=== PATIENT | female | born 1995 | race Caucasian/White ===

== ENCOUNTER → 2019-11-14 | Outpatient (CLI) | payer OTHER ==
--- NOTE | 2019-11-14 12:11 | US ---
EXAMINATION TYPE: US liver DATE OF EXAM: 11/14/2019 COMPARISON: NONE CLINICAL HISTORY: B18.2 Chronic viral hepatitis C. EXAM MEASUREMENTS: Liver Length: 12.0 cm Gallbladder Wall: Surgically absent CBD: 0.3 cm Right Kidney: 10.6 x 4.2 x 5.6 cm Pancreas: not identified due to midline bowel gas Liver: There is no mass. No dilated intra or extrahepatic biliary ducts. Gallbladder: Surgically absent CBD: wnl Right Kidney: No hydronephrosis or masses seen There is no ascites. IMPRESSION: Postop change. No abnormality evident within the liver.
== END | disposition home or self-care (01) ==
LOC: RADUSWWP 08:37
PROVIDERS: ATTEND Internal Medicine Gastroenterology
DX: B18.2 Chronic viral hepatitis C (principal); Z98.890 Other specified postprocedural states
CPT/HCPCS: 76705

== ENCOUNTER 2020-05-25 17:32 | Emergency (ER) | payer OTHER ==
--- NOTE | 2020-05-25 18:12 | ED ---
Psych HPI - General Source: patient, RN notes reviewed Mode of arrival: ambulatory Limitations: no limitations <Lg Ghosh - Last Filed: 05/25/20 18:11> <Joby Johnson - Last Filed: 05/26/20 23:54> - General Chief Complaint: Psychiatric Symptoms Stated Complaint: EPS eval Time Seen by Provider: 05/25/20 17:41 - History of Present Illness Initial Comments: 24-year-old female presents emergency Department with chief complaint of depression, suicidal ideation. She's been having increasing depression. Patient is she is currently is homeless. She has been struggling with heroin addiction. Patient denies any alcohol use. Denies any physical complaints. Denies any homicidal ideation. She states that she supposed be on psychiatric medications but has not been taking them. (Lg Ghosh) - Related Data Home Medications Medication Instructions Recorded Confirmed Albuterol Inhaler [Ventolin Hfa 1 - 2 puff INHALATION RT-Q4H PRN 05/25/2005/25 Inhaler] Divalproex ER [Depakote ER] 500 mg PO BID 05/25/20 05/25/20 Lurasidone [Latuda] 40 mg PO HS 05/25/20 05/25/20 Previous Rx's Medication Instructions Recorded buPROPion XL [Wellbutrin XL] 150 mg PO DAILY 30 Days tab.er.24h 08/17/14 Allergies Allergy/AdvReac Type Severity Reaction Status Date / Time No Known Allergies Allergy Verified 05/25/20 17:39 Review of Systems ROS Other: All systems not noted in ROS Statement are negative. <Lg Ghosh - Last Filed: 05/25/20 18:11> ROS Other: All systems not noted in ROS Statement are negative. <Joby Johnson - Last Filed: 05/26/20 23:54> ROS Statement: Those systems with pertinent positive or pertinent negative responses have been documented in the HPI. Past Medical History Past Medical History: Asthma, Fibromyalgia History of Any Multi-Drug Resistant Organisms: None Reported Past Surgical History: Adenoidectomy Additional Past Surgical History / Comment(s): 2002 Past Anesthesia/Blood Transfusion Reactions: No Reported Reaction Past Psychological History: ADD/ADHD, Depression Smoking Status: Current every day smoker Past Alcohol Use History: Occasional Past Drug Use History: None Reported - Past Family History Mother Family Medical History: Fibromyalgia <Lg Ghosh - Last Filed: 05/25/20 18:11> General Exam Limitations: no limitations General appearance: alert, in no apparent distress Head exam: Present: atraumatic, normocephalic, normal inspection Eye exam: Present: normal appearance, PERRL, EOMI. Absent: scleral icterus, conjunctival injection, periorbital swelling ENT exam: Present: normal exam (Nose ring in place), normal oropharynx, mucous membranes moist, TM's normal bilaterally, normal external ear exam Neck exam: Present: normal inspection, full ROM. Absent: tenderness, meningismus, lymphadenopathy Respiratory exam: Present: normal lung sounds bilaterally. Absent: respiratory distress, wheezes, rales, rhonchi, stridor Cardiovascular Exam: Present: regular rate, normal rhythm, normal heart sounds. Absent: systolic murmur, diastolic murmur, rubs, gallop, clicks Neurological exam: Present: alert, oriented X3 Psychiatric exam: Present: depressed Skin exam: Present: warm, dry, intact, normal color. Absent: rash <Lg Ghosh M - Last Filed: 05/25/20 18:11> Course <Joby Johnson - Last Filed: 05/26/20 23:54> Vital Signs 05/25/20 05/25/20 05/26/20 17:34 20:35 06:37 Temperature 98.3 F 97.7 F 98.3 F Pulse Rate 64 78 66 Respiratory 18 17 17 Rate Blood Pressure 109/65 121/60 111/63 O2 Sat by Pulse 99 98 99 Oximetry - Reevaluation(s) Reevaluation #1: 05/25/20 22:58 The patient's care was endorsed me by Lg at our shift change. The patient is demonstrating hopelessness suicidal thoughts and ideation and depression. She does have a plan either cut herself or overdose. She will be transferred to an outside facility answers currently no room at this facility. A clinical certain was filled out by me. The case will be endorsed to Dr. Carvalho at our shift change pending transfer. (Joby Johnson) Medical Decision Making - Lab Data Result diagrams: 05/26/20 00:03 05/26/20 00:03 <Joby Johnson - Last Filed: 05/26/20 23:54> - Lab Data Lab Results 05/25/20 05/25/2005/25/20 Range/Units 18:31 18:31 18:31 WBC (3.8-10.6) k/uL RBC (3.80-5.40) m/uL Hgb (11.4-16.0) gm/dL Hct (34.0-46.0) % MCV (80.0-100.0) fL MCH (25.0-35.0) pg MCHC (31.0-37.0) g/dL RDW (11.5-15.5) % Plt Count (150-450) k/uL Hypochromasia Microcytosis Sodium (137-145) mmol/L Potassium (3.5-5.1) mmol/L Chloride (98-107) mmol/L Carbon Dioxide (22-30) mmol/L Anion Gap mmol/L BUN (7-17) mg/dL Creatinine (0.52-1.04) mg/dL Est GFR (CKD-EPI)AfAm (>60 ml/min/1.73 sqM) Est GFR (CKD-EPI)NonAf (>60 ml/min/1.73 sqM) Glucose (74-99) mg/dL Calcium (8.4-10.2) mg/dL Urine Color Yellow Urine Appearance Turbid H (Clear) Urine pH 6.0 (5.0-8.0) Ur Specific [place] 1.031 (1.001-1.035) Urine Protein 1+ H (Negative) Urine Glucose (UA) Negative (Negative) Urine Ketones Negative (Negative) Urine Blood Trace H (Negative) Urine Nitrite Negative (Negative) Urine Bilirubin Negative (Negative) Urine Urobilinogen 3.0 (<2.0) mg/dL Ur Leukocyte Esterase Negative (Negative) Urine RBC 2 (0-5) /hpf Urine WBC 2 (0-5) /hpf Ur Squamous Epith Cells 5 H (0-4) /hpf Amorphous Sediment Many H (None) /hpf Urine Mucus Many H (None) /hpf Urine HCG, Qual Not Detected (Not Detectd) Urine Opiates Screen Not Detected (NotDetected) Ur Oxycodone Screen Detected H (NotDetected) Urine Methadone Screen Not Detected (NotDetected) Ur Propoxyphene Screen Not Detected (NotDetected) Ur Barbiturates Screen Not Detected (NotDetected) U Tricyclic Antidepress Not Detected (NotDetected) Ur Phencyclidine Scrn Not Detected (NotDetected) Ur Amphetamines Screen Detected H (NotDetected) U Methamphetamines Scrn Not Detected (NotDetected) U Benzodiazepines Scrn Detected H (NotDetected) Urine Cocaine Screen Not Detected (NotDetected) U Marijuana (THC) Screen Not Detected (NotDetected) 05/26/20 05/26/20 Range/Units 00:03 00:03 WBC 7.3 (3.8-10.6) k/uL RBC 5.77 H (3.80-5.40) m/uL Hgb 11.6 (11.4-16.0) gm/dL Hct 38.5 (34.0-46.0) % MCV 66.8 L (80.0-100.0) fL MCH 20.0 L (25.0-35.0) pg MCHC 30.0 L (31.0-37.0) g/dL RDW 14.9 (11.5-15.5) % Plt Count 392 (150-450) k/uL Hypochromasia Marked Microcytosis Marked Sodium 139 (137-145) mmol/L Potassium 4.0 (3.5-5.1) mmol/L Chloride 108 H (98-107) mmol/L Carbon Dioxide 24 (22-30) mmol/L Anion Gap 7 mmol/L BUN 10 (7-17) mg/dL Creatinine 0.63 (0.52-1.04) mg/dL Est GFR (CKD-EPI)AfAm >90 (>60 ml/min/1.73 sqM) Est GFR (CKD-EPI)NonAf >90 (>60 ml/min/1.73 sqM) Glucose 105 H (74-99) mg/dL Calcium 9.3 (8.4-10.2) mg/dL Urine Color Urine Appearance (Clear) Urine pH (5.0-8.0) Ur Specific [place] (1.001-1.035) Urine Protein (Negative) Urine Glucose (UA) (Negative) Urine Ketones (Negative) Urine Blood (Negative) Urine Nitrite (Negative) Urine Bilirubin (Negative) Urine Urobilinogen (<2.0) mg/dL Ur Leukocyte Esterase (Negative) Urine RBC (0-5) /hpf Urine WBC (0-5) /hpf Ur Squamous Epith Cells (0-4) /hpf Amorphous Sediment (None) /hpf Urine Mucus (None) /hpf Urine HCG, Qual (Not Detectd) Urine Opiates Screen (NotDetected) Ur Oxycodone Screen (NotDetected) Urine Methadone Screen (NotDetected) Ur Propoxyphene Screen (NotDetected) Ur Barbiturates Screen (NotDetected) U Tricyclic Antidepress (NotDetected) Ur Phencyclidine Scrn (NotDetected) Ur Amphetamines Screen (NotDetected) U Methamphetamines Scrn (NotDetected) U Benzodiazepines Scrn (NotDetected) Urine Cocaine Screen (NotDetected) U Marijuana (THC) Screen (NotDetected) Disposition <Lg Ghosh - Last Filed: 05/25/20 18:11> - Out of Hospital Transfer - Req. Specs Out of Hospital Transfer - Requested Specifics: Psychiatric Non-ICU <Joby Johnson - Last Filed: 05/26/20 23:54> Clinical Impression: Depression, Suicidal ideation Disposition: TRANSFER TO PSYCH HOSP/UNIT Condition: Stable Referrals: None,Stated [Primary Care Provider] - 1-2 days
[2020-05-25 18:54] LABS: Amphetamine Screen,Urine Detected (NotDetected); Barbiturate Screen,Urine Not Detected (NotDetected); Benzodiazepines Screen,Urine Detected (NotDetected); Cocaine Screen,Urine Not Detected (NotDetected); Methadone Screen, Urine Not Detected (NotDetected); Opiate Screen,Urine Not Detected (NotDetected); Oxycodone Screen, Urine Detected (NotDetected); Phencyclidine Screen,Urine Not Detected (NotDetected); Tricyclic Antidepressant,Urine Not Detected (NotDetected); Urn Cannabinoid Scrn Not Detected (NotDetected)
[2020-05-25 20:36] VITALS: RESP 17
[2020-05-25] MEDS ORDERED: NICOTINE 7MG/24HR PATCH TRANSDERM ONE (21:30)
[2020-05-25] MEDS ORDERED: ZOLPIDEM 5 MG TAB PO PRN (22:00)
[2020-05-26 00:19] LABS: HCT 38.5 % (34.0-46.0); HGB 11.6 gm/dL (11.4-16.0); Hypochromasia Marked; MCV 66.8 fL (80.0-100.0); Mean Platelet Volume 6.8; Microcytosis Marked; Platelet Count 392 k/uL (150-450); RBC 5.77 m/uL (3.80-5.40); RDW 14.9 % (11.5-15.5); WBC 7.3 k/uL (3.8-10.6)
[2020-05-26 00:22] LABS: African American GFR (CKD) >90 (>60 ml/min/1.73 sqM); Anion Gap 7 mmol/L; Blood Urea Nitrogen 10 mg/dL (7-17); Calcium 9.3 mg/dL (8.4-10.2); Carbon Dioxide 24 mmol/L (22-30); Chloride 108 mmol/L (98-107); Glucose 105 mg/dL (74-99); Non-African American GFR(CKD) >90 (>60 ml/min/1.73 sqM); Sodium 139 mmol/L (137-145)
[2020-05-26 01:02] LABS: Amorphous Sediment,Urine Many /hpf; Appearance,Urine Turbid (Clear); Bilirubin,Urine Negative (Negative); Blood,Urine Trace (Negative); Color,Urine Yellow; Glucose,Urine (UA) Negative (Negative); Ketones,Urine Negative (Negative); Leukocyte Esterase,Urine Negative (Negative); Mucus,Urine Many /hpf; Nitrite,Urine Negative (Negative); Protein,Urine 1+ (Negative); RBC,Urine 2 /hpf (0-5); Specific Gravity,Urine 1.031 (1.001-1.035); Squamous Epithelial Cell,Urine 5 /hpf (0-4); WBC,Urine 2 /hpf (0-5)
[2020-05-26 08:09] VITALS: BP 111/63; PULSE 66; TEMP 98.3
== END 2020-05-26 06:39 ==
LOC: EC 17:32
DX: R45.851 Suicidal ideations (principal); F32.9 Major depressive disorder, single episode, unspecified; J45.909 Unspecified asthma, uncomplicated; F11.20 Opioid dependence, uncomplicated; F17.200 Nicotine dependence, unspecified, uncomplicated; Z79.899 Other long term (current) drug therapy; Z59.0 Homelessness
CPT/HCPCS: 99285 ×2; 82075; 36415; 80048; 85027; 81001; 81025; 80306; S4990

== ENCOUNTER 2022-04-19 06:10 | Inpatient (IN) | payer OTHER ==
[2022-04-19] MEDS ORDERED: CITRIC ACID-SODIUM CITRATE 15 ML CUP PO ONE (06:46)
[2022-04-19] MEDS: LACTATED RINGERS 1,000 ML IV SCH ×2 (07:09→14:26)
[2022-04-19 07:13] LABS: Basophils % (A) 0 %; Eosinophils # (A) 0.1 k/uL (0-0.7); Eosinophils % (A) 1 %; HCT 37.4 % (34.0-46.0); HGB 11.5 gm/dL (11.4-16.0); Hypochromasia Slight; Lymphocytes # (A) 2.6 k/uL (1.0-4.8); Lymphocytes % (A) 23 %; MCH 21.2 pg (25.0-35.0); MCHC 30.7 g/dL (31.0-37.0); MCV 69.1 fL (80.0-100.0); Mean Platelet Volume 9.7; Microcytosis Marked; Monocytes # (A) 0.6 k/uL (0-1.0); Monocytes % (A) 6 %; Neutrophils # (A) 7.6 k/uL (1.3-7.7); Neutrophils % (A) 69 %; Platelet Count 243 k/uL (150-450); RBC 5.41 m/uL (3.80-5.40); RDW 15.8 % (11.5-15.5); WBC 11.1 k/uL (3.8-10.6)
--- NOTE | 2022-04-19 07:24 | P.HPOB ---
History of Present Illness H&P Date: 04/19/22 Chief Complaint: Breech 26-year-old presents at 39 weeks and 5 days for a primary low transverse for breech. Dr. Olvera and I did attempts an external eversion this morning which was unsuccessful. heart tones are 135 with moderate variability and reactive. Review of Systems All systems: negative Constitutional: Denies chills, Denies fever Eyes: denies blurred vision, denies pain Ears, nose, mouth and throat: Denies headache, Denies sore throat Cardiovascular: Denies chest pain, Denies shortness of breath Respiratory: Denies cough Gastrointestinal: Denies abdominal pain, Denies diarrhea, Denies nausea, Denies vomiting Genitourinary: Denies dysuria, Denies hematuria Musculoskeletal: Denies myalgias Integumentary: Denies pruritus, Denies rash Neurological: Denies numbness, Denies weakness Psychiatric: Denies anxiety, Denies depression Endocrine: Denies fatigue, Denies weight change Past Medical History Past Medical History: Asthma, Fibromyalgia Additional Past Medical History / Comment(s): Obstetric history: This patient has a history of heroin use and was on Suboxone therapy when she got . She stopped Suboxone in the first trimester. She is a transfer of care to me from another physician in the area of the stopped practicing. She's been very compliant with her visits. History of Any Multi-Drug Resistant Organisms: None Reported Past Surgical History: Adenoidectomy Additional Past Surgical History / Comment(s): 2002 Past Anesthesia/Blood Transfusion Reactions: No Reported Reaction Past Psychological History: ADD/ADHD, Depression Smoking Status: Current every day smoker Past Alcohol Use History: Occasional Past Drug Use History: None Reported - Past Family History Mother Family Medical History: Asthma, Fibromyalgia Medications and Allergies Home Medications Medication Instructions Recorded Confirmed Type Albuterol Inhaler [Ventolin Hfa 1 - 2 puff INHALATION RT-Q4H PRN 05/25/20 05/25/20 History Inhaler] Ferrous Sulfate [Iron] 325 mg PO DAILY 04/19/22 04/19/22 History Vit No.179/Iron/Folic 1 each PO DAILY 04/19/22 04/19/22 History [ Tablet] Allergies Allergy/AdvReac Type Severity Reaction Status Date / Time No Known Allergies Allergy Verified 04/19/22 06:22 Exam Osteopathic Statement: *. No significant issues noted on an osteopathic structural exam other than those noted in the History and Physical/Consult. Vital Signs Temp Pulse Resp BP Pulse Ox 04/19/22 06:16 97.2 F L 64 18 133/84 98 Intake and Output 04/18/22 04/19/22 04/19/22 22:59 06:59 14:59 Other: Weight 113.398 kg Heart: Regular rate and rhythm Lungs: Clear to auscultation bilaterally Abdomen: Soft, nontender Extremities: Negative Homans sign Results Result Diagrams: 04/19/22 06:30 Abnormal Lab Results - Last 24 Hours (Table) 04/19/22 Range/Units 06:30 WBC 11.1 H (3.8-10.6) k/uL RBC 5.41 H (3.80-5.40) m/uL MCV 69.1 L (80.0-100.0) fL MCH 21.2 L (25.0-35.0) pg MCHC 30.7 L (31.0-37.0) g/dL RDW 15.8 H (11.5-15.5) % Assessment and Plan (1) Breech presentation Current Visit: Yes Status: Acute Code(s): O32.1XX0 - MATERNAL CARE FOR BREECH PRESENTATION, UNSP SNOMED Code(s): 1006356 (2) 39 weeks gestation of Current Visit: Yes Status: Acute Code(s): Z3A.39 - 39 WEEKS GESTATION OF SNOMED Code(s): 38833715 Plan: 1. Primary low transverse
[2022-04-19] MEDS ORDERED: MORPHINE SULFATE 2 MG/ML SYRINGE IVP PRN (08:28)
[2022-04-19] MEDS ORDERED: diphenhydrAMINE 50 MG/ML 1 ML VIAL IVP PRN ×3 (08:28→08:35)
[2022-04-19] MEDS ORDERED: NALOXONE 0.4 MG/ML 1 ML VIAL IV PRN ×2 (08:28→08:35)
[2022-04-19] MEDS ORDERED: ONDANSETRON 4 MG/2 ML VIAL IVP PRN (08:28)
[2022-04-19] MEDS ORDERED: diphenhydrAMINE 25 MG CAP PO PRN (08:35)
[2022-04-19] MEDS ORDERED: METOCLOPRAMIDE 5 MG/ML 2 ML VIAL IVP PRN (08:35)
[2022-04-19] MEDS ORDERED: LANOLIN CREAM 5 GM TUBE TOPICAL PRN (08:35)
[2022-04-19] MEDS ORDERED: ZOLPIDEM 5 MG TAB PO PRN (08:35)
[2022-04-19] MEDS ORDERED: diphenhydrAMINE 50 MG CAP PO PRN (08:35)
[2022-04-19] MEDS ORDERED: ALBUTEROL NEBULIZED 2.5 MG/3 ML INHALATION PRN (08:36)
--- NOTE | 2022-04-19 08:40 | P.OP ---
Date of Procedure: 04/19/22 Preoperative Diagnosis: 1. 39 weeks and 5 days 2. Breech presentation Postoperative Diagnosis: 1. 39 weeks and 5 days 2. Breech presentation 3. Meconium-stained fluid 4. Nuchal cord 4 Procedure(s) Performed: Primary low transverse Anesthesia: spinal Surgeon: Betty Danielson Home Housekeeper #1: Rafiq Olvera Estimated Blood Loss (ml): 225 IV fluids (ml): 1,000 Urine output (ml): 350 Pathology: other (Placenta) Condition: stable Disposition: floor Operative Findings: Breech , viable female, Apgars 8, 9, weight 6 lbs. 11 oz. Normal uterus, tubes, ovaries. Nuchal cord 4. Description of Procedure: Patient was taken to the operating room where spinal anesthesia was found be adequate. She was prepped and draped in normal sterile fashion in dorsal supine position with a leftward tilt. Pfannenstiel skin incision was made the scalpel and carried through to the underlying layer of fascia with the scalpel. Fascia was incised in midline and carried bilaterally with the Krishnamurthy scissors. The superior aspect of the fascial incision was grasped with Bhargav clamps elevated and the underlying rectus muscles dissected off with the Krishnamurthy's. Attention was then turned to inferior aspect of same incision which in a similar fashion was grasped tented up and the underlying rectus muscles dissected off with the Krishnamurthy's. The rectus muscles were the midline and the peritoneum was identified tented up and entered sharply with the scalpel. The incision was extended superiorly and inferiorly with good visualization of the bladder. The bladder blade was inserted and the vesicouterine peritoneum was incised the Metzenbaums then carried bilaterally and bladder flap created digitally. A low transverse incision was then made on the uterus with the scalpel. This was carried bilaterally and digital manner. delivered in normal breech manner, nuchal cord 4 reduced, nose and mouth bulb suctioned, cord clamped and cut, handed off to waiting nurses. Apgars 8,9, weight 6 lbs. 11 oz. Placenta delivered manually, intact with three-vessel cord. The uterus is exteriorized and cleared of all clots and debris. The uterine incision was closed with 0 Vicryl in a running locked fashion. Second layer of the same sutures used in imbricating fashion to obtain excellent hemostasis. Bladder flap was then reapproximated using 2-0 Vicryl in a running fashion. Both ovaries and tubes appeared normal. The uterus was placed back into the abdomen. The peritoneum was reapproximated using 2-0 Vicryl in a running fashion. The muscles were reapproximated using 2-0 Vicryl in interrupted fashion. The fascia was reapproximated using 0 Vicryl in a running fashion. The subcutaneous tissues closed with 3-0 Vicryl running fashion. The skin was closed breanna. Patient tolerated the procedure well, sponge and instrument counts were correct times 2 and she was taken to the recovery room in stable condition.
[2022-04-19] MEDS ORDERED: OXYTOCIN 30 UNITS/500 ML NS 30 UNIT in SALINE 1 500ML.BAG IV SCH (08:45)
[2022-04-19] MEDS: ACETAMINOPHEN TAB 500 MG TAB PO SCH ×2 (12:20→18:58)
[2022-04-19] MEDS: IBUPROFEN 600 MG TAB PO SCH (15:23)
[2022-04-19] MEDS: KETOROLAC 15 MG/ML 1 ML VIAL IVP SCH (19:32)
[2022-04-19] MEDS: SENNOSIDES-DOCUSATE SODIUM 1 EACH TAB PO SCH (20:06)
[2022-04-19 20:34] VITALS: RESP 16
[2022-04-20] MEDS: ACETAMINOPHEN TAB 500 MG TAB PO SCH ×5 (01:12→22:22)
[2022-04-20] MEDS: KETOROLAC 15 MG/ML 1 ML VIAL IVP SCH ×3 (01:12→08:04)
[2022-04-20] MEDS: LACTATED RINGERS 1,000 ML IV SCH ×2 (01:12→08:56)
[2022-04-20] MEDS: IBUPROFEN 600 MG TAB PO SCH ×5 (01:12→19:35)
[2022-04-20 06:26] LABS: Basophils % (A) 0 %; Eosinophils # (A) 0.1 k/uL (0-0.7); Eosinophils % (A) 1 %; HCT 33.4 % (34.0-46.0); HGB 10.2 gm/dL (11.4-16.0); Hypochromasia Slight; Lymphocytes # (A) 1.6 k/uL (1.0-4.8); Lymphocytes % (A) 15 %; MCH 21.3 pg (25.0-35.0); MCHC 30.6 g/dL (31.0-37.0); MCV 69.7 fL (80.0-100.0); Mean Platelet Volume 8.1; Microcytosis Marked; Monocytes # (A) 0.7 k/uL (0-1.0); Monocytes % (A) 7 %; Neutrophils # (A) 8.1 k/uL (1.3-7.7); Neutrophils % (A) 76 %; Platelet Count 183 k/uL (150-450); RBC 4.79 m/uL (3.80-5.40); RDW 15.6 % (11.5-15.5); WBC 10.7 k/uL (3.8-10.6)
[2022-04-20] MEDS: SENNOSIDES-DOCUSATE SODIUM 1 EACH TAB PO SCH ×2 (08:05→20:00)
--- NOTE | 2022-04-20 08:49 | P.PN ---
Progress Note - Text Progress Note Date: 04/20/22 (0658) Anesthesia Postop day 1 Subjective: Status Post section with Duramorph. Patient seen and examined. Doing well without complaint. VAS 0. No nausea or vomiting. No pruritus. Resting well. Gross lower extremity strength intact. . Without apparent anesthetic complications. Objective: Vital signs reviewed Heart: Regular Rate Lungs: Good chest excursion Abdomen: Appears nondistended Assessment: Status post with Duramorph postop day 1 Plan: Continue current care with your medical management. Anticipated change in pain needs around noon today. You may see a increase in pain meds needs at this time This note was dictated using [employer] software. Please be advised there is a potential for misspellings or errors in kiln door repairer.
--- NOTE | 2022-04-20 09:47 | P.PNOBGPC ---
Subjective - Subjective Principal diagnosis: Status post primary low transverse postop day 1 Interval history: Patient seen and examined. Denies nausea, vomiting, chest pain, shortness of breath or any calf pain. Patient reports: Reports appetite normal, Reports voiding normally, Reports pain well controlled, Reports ambulating normally : doing well Objective - Vital Signs Latest vital signs: Vital Signs Temp Pulse Resp BP Pulse Ox 04/20/22 08:00 97.9 F 100 16 103/71 98 04/20/22 04:00 98.2 F 72 16 114/74 99 04/20/22 00:00 98.2 F 72 16 111/61 98 04/19/22 20:00 98.4 F 64 16 113/66 98 04/19/22 16:55 98 04/19/22 16:54 74 20 04/19/22 15:18 98.9 F 81 18 121/57 97 04/19/22 15:00 64 18 97 04/19/22 13:28 98 04/19/22 12:14 97.9 F 60 18 130/68 04/19/22 11:28 68 18 98 04/19/22 10:31 98.2 F 79 18 140/89 04/19/22 10:17 97.7 F 88 18 134/82 100 Intake and Output 04/19/22 04/20/22 04/20/22 22:59 06:59 14:59 Output Total 1100 Balance -1100 Output: Urine 1100 Uretheral (Bishop) 400 Other: # Voids 1 1 1 - Exam Lungs: bilateral: normal Chest: Normal S1, Normal S2 Extremities: Present: normal Abdomen: Present: normal appearance, soft. Absent: distention, tenderness Incision: Present: normal, dry, intact Uterus: Present: normal, firm - Labs Labs: Abnormal Lab Results - Last 24 Hours (Table) 04/20/22 Range/Units 06:08 WBC 10.7 H (3.8-10.6) k/uL Hgb 10.2 L (11.4-16.0) gm/dL Hct 33.4 L (34.0-46.0) % MCV 69.7 L (80.0-100.0) fL MCH 21.3 L (25.0-35.0) pg MCHC 30.6 L (31.0-37.0) g/dL RDW 15.6 H (11.5-15.5) % Neutrophils # 8.1 H (1.3-7.7) k/uL Assessment and Plan (1) Breech presentation Current Visit: Yes Status: Resolved Code(s): O32.1XX0 - MATERNAL CARE FOR BREECH PRESENTATION, UNSP SNOMED Code(s): 6918641 (2) 39 weeks gestation of Current Visit: Yes Status: Resolved Code(s): Z3A.39 - 39 WEEKS GESTATION OF SNOMED Code(s): 83088634 (3) Status post primary low transverse section Current Visit: Yes Status: Acute Code(s): Z98.891 - HISTORY OF UTERINE SCAR FROM PREVIOUS SURGERY SNOMED Code(s): 480697778 Plan: 1. Increase ambulation 2. By mouth pain medication
[2022-04-20] MEDS: SIMETHICONE 80 MG CHEWABLE PO PRN (16:19)
[2022-04-21] MEDS: SIMETHICONE 80 MG CHEWABLE PO PRN ×2 (00:03→08:21)
[2022-04-21] MEDS: IBUPROFEN 600 MG TAB PO SCH ×2 (01:23→08:21)
[2022-04-21] MEDS: ACETAMINOPHEN TAB 500 MG TAB PO SCH (04:25)
--- NOTE | 2022-04-21 07:44 | P.DS ---
Providers Date of admission: 04/19/22 06:10 Expected date of discharge: 04/21/22 Attending physician: Betty Danielson Primary care physician: Stated None - Discharge Diagnosis(es) (1) Breech presentation Current Visit: Yes Status: Resolved (2) 39 weeks gestation of Current Visit: Yes Status: Resolved (3) Status post primary low transverse section Current Visit: Yes Status: Acute Hospital Course: Patient presented with baby in breech presentation. After failed version attempt she underwent a primary low transverse . course was uncomplicated. She did stay away from narcotics as she desired. Pain is controlled with Motrin and Tylenol. She denies nausea, vomiting, chest pain, shortness of breath or calf pain. She will be discharged home day #2 in stable condition to follow-up with me in one week. Plan - Discharge Summary New Discharge Prescriptions: New Ibuprofen [Motrin] 600 mg PO Q6H #40 tab No Action Albuterol Inhaler [Ventolin Hfa Inhaler] 1 - 2 puff INHALATION RT-Q4H PRN PRN Reason: Shortness Of Breath Ferrous Sulfate [Iron] 325 mg PO DAILY Vit No.179/Iron/Folic [ Tablet] 1 each PO DAILY Discharge Medication List Albuterol Inhaler [Ventolin Hfa Inhaler] 1 - 2 puff INHALATION RT-Q4H PRN 05/25/20 [History] Ferrous Sulfate [Iron] 325 mg PO DAILY 04/19/22 [History] Vit No.179/Iron/Folic [ Tablet] 1 each PO DAILY 04/19/22 [History] Ibuprofen [Motrin] 600 mg PO Q6H #40 tab 04/21/22 [Rx] Follow up Appointment(s)/Referral(s): Betty Danielson DO [Doctor of Osteopathic Medicine] - 1 Week Discharge Disposition: HOME SELF-CARE
[2022-04-21] MEDS: SENNOSIDES-DOCUSATE SODIUM 1 EACH TAB PO SCH (08:21)
[2022-04-21 10:35] VITALS: BP 129/81; PULSE 75; TEMP 98.9
== END 2022-04-21 11:00 | disposition home or self-care (01) | DRG 788 ==
LOC: 4FBP 06:10
PROVIDERS: ADMIT Obstetrics & Gynecology; ATTEND Obstetrics & Gynecology
PROC: 10D00Z1 Extraction of Products of Conception, Low, Open Approach (ICD-10-PCS; principal; 2022-04-19 08:08)
DX: O32.1XX0 Maternal care for breech presentation, not applicable or unspecified (principal); O69.81X0 Labor and delivery complicated by cord around neck, without compression, not applicable or unspecified; O77.0 Labor and delivery complicated by meconium in amniotic fluid; O99.334 Smoking (tobacco) complicating childbirth; F32.A Depression, unspecified; F17.200 Nicotine dependence, unspecified, uncomplicated; F90.9 Attention-deficit hyperactivity disorder, unspecified type; J45.909 Unspecified asthma, uncomplicated; M79.7 Fibromyalgia; O99.344 Other mental disorders complicating childbirth; O99.52 Diseases of the respiratory system complicating childbirth; Z37.0 Single live birth; Z3A.39 39 weeks gestation of pregnancy; Z82.5 Family history of asthma and other chronic lower respiratory diseases; Z28.310 Unvaccinated for COVID-19; Z28.21 Immunization not carried out because of patient refusal
CPT/HCPCS: 85025; 86850; 86900; 86901

== ENCOUNTER → 2023-06-22 | Outpatient (CLI) | payer OTHER ==
--- NOTE | 2023-06-22 09:09 | US ---
EXAMINATION TYPE: US pelvic complete DATE OF EXAM: 06/22/2023 COMPARISON: NONE CLINICAL INDICATION: Female, 27 years old with history of N91.2 AMENORRHEA; Patient states she hasn't had a period in 10 months TECHNIQUE: . Transabdominal sonographic images of the pelvis were acquired. Transvaginal sonographi c images were medically necessary to better assess the following anatomy: ovaries Date of LMP: 10 months ago EXAM MEASUREMENTS: Uterus: 11.2 x 3.6 x 4.7 cm Endometrial Stripe: 0.9 cm Right Ovary: not seen Left Ovary: not seen 1. Uterus: anteverted, mildly enlarged, heterogeneous 2. Endometrium: appears wnl 3. Right Ovary: not seen due to overlying bowel gas 4. Left Ovary: not seen due to overlying bowel gas 5. Bilateral Adnexa: wnl 6. Posterior cul-de-sac: small amount of free fluid IMPRESSION: 1. Uterus is enlarged and mildly heterogenous. This could reflect small leiomyomatous changes.
== END | disposition home or self-care (01) ==
LOC: RADUSWWP 08:26
PROVIDERS: ATTEND Internal Medicine
DX: N91.2 Amenorrhea, unspecified (principal); N83.8 Other noninflammatory disorders of ovary, fallopian tube and broad ligament
CPT/HCPCS: 76830; 76856